=== PATIENT | female | born 1965 | race African-American/Black ===

== ENCOUNTER 2019-10-17 07:57 | Emergency (ER) | payer BC ==
[~2019-10-17] VITALS: Ht 177.8 cm; Wt 104.0 kg
[2019-10-17] MEDS ORDERED: IBUPROFEN 400MG TABLET PO ONE (08:45)
[2019-10-17 10:08] VITALS: BP 168/90
== END 2019-10-17 10:16 | disposition home or self-care (01) ==
LOC: ER 07:57
DX: M25.561 Pain in right knee (principal); M25.461 Effusion, right knee; E11.9 Type 2 diabetes mellitus without complications; I10 Essential (primary) hypertension
CPT/HCPCS: 73562; 93971; 99284

== ENCOUNTER 2022-05-15 13:41 | Emergency (ER) | payer BC ==
[~2022-05-15] VITALS: Ht 177.8 cm; Wt 95.0 kg
[2022-05-15 13:55] VITALS: BP 112/70
[2022-05-15] MEDS ORDERED: KETOROLAC 60MG/2ML VIAL IM ONE (16:15)
[2022-05-15] MEDS ORDERED: ACETAMINOPHEN 325MG TABLET PO ONE (16:15)
[2022-05-15] MEDS ORDERED: CEPHALEXIN 250MG CAPSULE PO ONE (16:30)
[2022-05-15] MEDS ORDERED: SULFAMETHOXAZOLE/TRIMETHOPRIM 800/160MG TABLET PO ONE (16:30)
[2022-05-15] MEDS ORDERED: SULF1TAB48 MT (16:48)
[2022-05-15] MEDS ORDERED: CEPH500T MT (16:48)
== END 2022-05-15 17:00 | disposition home or self-care (01) ==
LOC: ER 13:57
DX: M79.89 Other specified soft tissue disorders (principal); M71.22 Synovial cyst of popliteal space [Baker], left knee; E11.9 Type 2 diabetes mellitus without complications; I10 Essential (primary) hypertension; Z98.51 Tubal ligation status; Z90.49 Acquired absence of other specified parts of digestive tract
CPT/HCPCS: 93971; 96372; 99284; J1885